=== PATIENT | male | born 1985 | race Caucasian/White ===

== ENCOUNTER 2017-03-15 16:20 | Emergency (ER) | payer BC ==
[~2017-03-15] VITALS: Ht 167.6 cm; Wt 84.8 kg
[2017-03-15 16:30] VITALS: BP 126/67; Ht 167.6 cm; Wt 84.8 kg
== END 2017-03-15 18:50 | disposition home or self-care (01) ==
LOC: ED 16:20
DX: S01.111A Laceration without foreign body of right eyelid and periocular area, initial encounter (principal); Y93.66 Activity, soccer; Y92.89 Other specified places as the place of occurrence of the external cause; Y99.8 Other external cause status
CPT/HCPCS: 90715; J2001

== ENCOUNTER 2017-03-16 04:01 | Emergency (ER) | payer BC ==
[~2017-03-16] VITALS: Ht 167.6 cm; Wt 75.7 kg
[2017-03-16 04:09] VITALS: Ht 167.6 cm; Wt 75.7 kg
[2017-03-16 05:11] VITALS: BP 120/68
== END 2017-03-16 05:11 | disposition home or self-care (01) ==
LOC: ED 04:01
DX: H05.89 Other disorders of orbit (principal)

== ENCOUNTER 2017-03-17 09:10 | Emergency (ER) | payer BC ==
[~2017-03-17] VITALS: Ht 167.6 cm; Wt 86.2 kg
[2017-03-17 09:29] VITALS: BP 121/69; Ht 167.6 cm; Wt 86.2 kg
== END 2017-03-17 10:29 | disposition home or self-care (01) ==
LOC: ED 09:10
DX: S01.111D Laceration without foreign body of right eyelid and periocular area, subsequent encounter (principal); Y93.66 Activity, soccer

== ENCOUNTER 2017-03-21 09:02 | Emergency (ER) | payer BC ==
[~2017-03-21] VITALS: Ht 167.6 cm; Wt 85.3 kg
[2017-03-21 09:14] VITALS: BP 116/70; Ht 167.6 cm; Wt 85.3 kg
== END 2017-03-21 10:06 | disposition home or self-care (01) ==
LOC: ED 09:02
DX: S01.111D Laceration without foreign body of right eyelid and periocular area, subsequent encounter (principal); X58.XXXD Exposure to other specified factors, subsequent encounter